=== PATIENT | female | born 1940 | race Caucasian/White ===

== ENCOUNTER 2018-02-24 10:20 | Day surgery (SDC) | payer MEDICARE, BC, OTHER ==
[2018-02-24] MEDS: PROPARACAINE 0.5% OPHTH SOL 15ML OS (11:08)
[2018-02-24] MEDS: PHENYLEPHRINE 2.5% OPHTH SOL 2ML OS (11:08)
[2018-02-24] MEDS: OFLOXACIN 0.3 % (OCUFLOX) OPTH SOL 5ML OS (11:08)
[2018-02-24] MEDS: TROPICAMIDE 1% OPHTH SOLN 2ML OS (11:08)
[2018-02-24] MEDS ORDERED: MIDAZOLAM INJ 2 MG/2 ML VIAL (J2250) As Ordered (11:29)
[2018-02-24] MEDS ORDERED: fentaNYL 100 MCG/2 ML INJECTION (J3010) As Ordered (11:30)
[2018-02-24] MEDS: POVIDONE-IODINE 5% OPHTH PREP SOL 30ML As Ordered (11:53)
[2018-02-24] MEDS: LIDOCAINE 0.75%/EPINEPHRINE 0.025% IN BSS 1ML SYR INTRACAMERAL (OR ONLY) As Ordered (11:56)
[2018-02-24] MEDS: BALANCED SALT IRRIGATION SOLUTION 500ML BAG (FOR OR EYE MACHINE) As Ordered (12:00)
[2018-02-24] MEDS: CEFUROXIME 1MG/0.1ML INTRACAMERAL INJ As Ordered (12:01)
[2018-02-24] MEDS: DUOVISC (0.50ML VISCOAT/0.55ML PROVISC) OPHTH KIT As Ordered (12:01)
== END 2018-02-24 12:57 | disposition home or self-care (01) ==
LOC: M SDC 10:20
DX: H25.12 Age-related nuclear cataract, left eye (principal); I10 Essential (primary) hypertension; E78.00 Pure hypercholesterolemia, unspecified; K59.00 Constipation, unspecified; M12.9 Arthropathy, unspecified; Z91.048 Other nonmedicinal substance allergy status; Z79.899 Other long term (current) drug therapy; Z79.82 Long term (current) use of aspirin; Z78.0 Asymptomatic menopausal state
CPT/HCPCS: 66984

== ENCOUNTER 2018-03-03 09:22 | Day surgery (SDC) | payer MEDICARE, BC, OTHER ==
[2018-03-03] MEDS: PROPARACAINE 0.5% OPHTH SOL 15ML OD (09:30)
[2018-03-03] MEDS: OFLOXACIN 0.3 % (OCUFLOX) OPTH SOL 5ML OD (09:31)
[2018-03-03] MEDS: TROPICAMIDE 1% OPHTH SOLN 2ML OD (09:32)
[2018-03-03] MEDS: PHENYLEPHRINE 2.5% OPHTH SOL 2ML OD (09:34)
[2018-03-03] MEDS ORDERED: MIDAZOLAM INJ 2 MG/2 ML VIAL (J2250) As Ordered (10:29)
[2018-03-03] MEDS ORDERED: fentaNYL 100 MCG/2 ML INJECTION (J3010) As Ordered (10:30)
[2018-03-03] MEDS: POVIDONE-IODINE 5% OPHTH PREP SOL 30ML As Ordered (10:42)
[2018-03-03] MEDS: LIDOCAINE 0.75%/EPINEPHRINE 0.025% IN BSS 1ML SYR INTRACAMERAL (OR ONLY) As Ordered (10:46)
[2018-03-03] MEDS: BALANCED SALT IRRIGATION SOLUTION 500ML BAG (FOR OR EYE MACHINE) As Ordered (10:47)
[2018-03-03] MEDS: DUOVISC (0.50ML VISCOAT/0.55ML PROVISC) OPHTH KIT As Ordered (10:50)
[2018-03-03] MEDS: CEFUROXIME 1MG/0.1ML INTRACAMERAL INJ As Ordered (10:50)
== END 2018-03-03 11:36 | disposition home or self-care (01) ==
LOC: M SDC 09:22
DX: H25.11 Age-related nuclear cataract, right eye (principal); I10 Essential (primary) hypertension; E78.00 Pure hypercholesterolemia, unspecified; K59.00 Constipation, unspecified; M12.9 Arthropathy, unspecified; E66.9 Obesity, unspecified; Z68.37 Body mass index [BMI] 37.0-37.9, adult; Z91.048 Other nonmedicinal substance allergy status; Z79.899 Other long term (current) drug therapy; Z79.82 Long term (current) use of aspirin; Z78.0 Asymptomatic menopausal state
CPT/HCPCS: 66984